=== PATIENT | male | born 1930 | race Caucasian/White ===

== ENCOUNTER 2019-02-11 14:07 | Outpatient (CLI) | payer MEDICARE, OTHER ==
[2019-02-11 18:31] LABS: FOLATE 8.86 ng/mL (5.90 - >24.8)
== END 2019-02-11 14:08 | disposition home or self-care (01) ==
LOC: LAB.S 14:07
DX: E53.8 Deficiency of other specified B group vitamins (principal)
CPT/HCPCS: 36415; 82607; 82746; 83921

== ENCOUNTER 2020-01-29 08:00 | Outpatient (CLI) | payer MEDICARE, OTHER | END 2020-01-29 23:59 | disposition home or self-care (01) | LOC: LAB.S 08:00 | PROVIDERS: ATTEND Internal Medicine | DX: R19.7 Diarrhea, unspecified (principal) | CPT/HCPCS: 87493 ==

== ENCOUNTER 2020-06-15 11:42 | Outpatient (CLI) | payer MEDICARE, OTHER | END 2020-06-15 11:43 | disposition home or self-care (01) | LOC: LAB 11:42 | PROVIDERS: ATTEND Nurse Practitioner Family | DX: Z76.89 Persons encountering health services in other specified circumstances (principal); Z20.828 Contact with and (suspected) exposure to other viral communicable diseases ==

== ENCOUNTER 2020-12-22 10:44 | Outpatient (CLI) | payer MEDICARE ==
--- NOTE | 2020-12-22 18:05 | XRAY Report ---
PROCEDURE: Shoulder 3 View LT INDICATIONS: PAIN OF LEFT SHOULDER JOINT TECHNIQUE: 3 views of the shoulder were acquired. COMPARISON: None. FINDINGS: Bones: Status post left shoulder arthroplasty. No fractures or dislocations. No suspicious bony les ions. Visualized ribs appear intact. Mild acromioclavicular joint osteoarthritis. Soft tissues: No suspicious soft tissue calcifications. IMPRESSION: Left shoulder arthroplasty. Mild acromioclavicular joint osteoarthritis. Reviewed by: Neelam Luther MD, PhD on 12/22/2020 6:04 PM PDT Approved by: Neelam Luther MD, PhD on 12/22/2020 6:04 PM PDT Station ID: [id number]
== END 2020-12-22 10:45 | disposition home or self-care (01) ==
LOC: DI.S 10:44
PROVIDERS: ATTEND Physician Assistant
DX: M19.012 Primary osteoarthritis, left shoulder (principal); Z96.612 Presence of left artificial shoulder joint